=== PATIENT | female | born 1970 | race African-American/Black ===

== ENCOUNTER 2019-04-13 10:28 | Emergency (ER) | payer MEDICAID, OTHER ==
[~2019-04-13] VITALS: Ht 172.7 cm; Wt 90.0 kg
[2019-04-13] MEDS ORDERED: LIDOCAINE HCL/PF 1% 10 MG/ML 5ML VIAL IJ ONE (12:45)
[2019-04-13] MEDS ORDERED: BACITRACIN ZINC OINT UDPKT TOP ONE (12:45)
[2019-04-13 12:58] VITALS: BP 134/76
== END 2019-04-13 15:06 | disposition home or self-care (01) ==
LOC: ER 13:46
DX: L02.416 Cutaneous abscess of left lower limb (principal)
CPT/HCPCS: 10060; 99283